=== PATIENT | female | born 1960 | race Hispanic/Latino ===

== ENCOUNTER 2024-09-27 05:50 | Day surgery (SDC) | payer MEDICAID ==
[2024-09-25 11:07] VITALS: BP 135/68; PULSE 78; RESP 17; TEMP 97.2
[2024-09-25 11:28] LABS: BASOPHILS # (AUTO) 0.04 K/uL (0.00-0.20); BASOPHILS % (AUTO) 0.8 % (0.0-5.0); EOSINOPHILS # (AUTO) 0.23 K/uL (0.00-0.70); EOSINOPHILS % (AUTO) 4.4 % (0.0-8.0); HEMATOCRIT 27.9 % (36-48); IMMATURE GRANULOCYTE ABSOLUTE 0.02 K/uL (0-1); LYMPHOCYTES % (AUTO) 18.5 % (21.0-51.0); MEAN CORPUSCULAR HEMOGLOBIN 33.5 pg (27.0-33.0); MEAN CORPUSCULAR HGB CONC 34.1 g/dL (32.0-36.0); MEAN CORPUSCULAR VOLUME 98.2 fL (79-99); MONOCYTES # (AUTO) 0.5 K/uL (0.1-1.0); NEUTROPHILS # (AUTO) 3.5 K/uL (1.8-7.7); NEUTROPHILS % (AUTO) 66.9 % (40.0-77.0); PLATELET COUNT (AUTO) 178 K/uL (130-400); RED BLOOD CELL COUNT(AUTO) 2.84 MIL/uL (4.00-5.50); RED CELL DISTRIBUTION WIDTH 14.1 % (11.0-15.5); WHITE BLOOD COUNT (AUTO) 5.2 K/uL (4.8-10.8)
[2024-09-25 11:37] LABS: CREATININE 1.5 mg/dL (0.5-1.0); POTASSIUM 4.6 mmol/L (3.5-5.1)
[2024-09-25 11:39] LABS: PROTHROMBIN TIME 10.6 SEC (9.6-11.6)
[2024-09-25 11:40] LABS: PARTIAL THROMBOPLASTIN TIME 26.8 SEC (26.3-35.5)
--- NOTE | 2024-09-26 12:34 | NUR ---
RE: LABS REPORTED CBC RESULTS TO DR BAKER, NO NEW ORDERS RECEIVED.
--- NOTE | 2024-09-26 12:43 | NUR ---
RE: JAYLEN REPORTED TO DR BAKER THAT PATIENT IS NOT ON ELIQUIS, SHE IS ON XARELTO. PER DR BAKER, HAVE PATIENT HOLD XARELTO TONIGHT. CALLED PATIENT AND INSTRUCTED HER NOT TO TAKE HER XARELTO TONIGHT, PATIENT VERBALIZED UNDERSTANDING.
[~2024-09-27] VITALS: Ht 160 cm; Wt 63.2 kg
[2024-09-27] VITALS (7 sets, daily range): BP systolic 143–180; BP diastolic 71–91; PULSE 77–99; RESP 12–19; TEMP 97–97.4
[~2024-09-27 05:50] MED LIST: AMOX500T2 PO; ATOR40TA69 PO; BUME2TAB5 PO; DILT120T PO; ESCI5TAB16 PO; FOLI1TAB85 PO; LEVE10006 PO; POTA-202 PO; RIVA15TA PO
[2024-09-27] MEDS ORDERED: HEParin 10,000 UNIT/10ML (1,000 UNIT/ML) VIAL ONE (07:20)
[2024-09-27] MEDS ORDERED: LIDOCAINE HCL 400MG/20ML VIAL ONE (07:20)
[2024-09-27] MEDS ORDERED: HEParin-NS 1,000 UNIT/500 ML 1,000 ML IV ONE (07:21)
[2024-09-27] MEDS: 0.9%NACL 1000ML 1,000 ML IV SCH (07:46)
[2024-09-27] MEDS ORDERED: MIDAZOLAM HCL 1 MG/ML 2ML VIAL ONE ×4 (08:00→09:13)
[2024-09-27] MEDS ORDERED: MEPERIDINE-PF 50 MG/ML SYG ONE ×3 (08:00→09:13)
== END 2024-09-27 11:40 | disposition home or self-care (01) ==
LOC: DAH 05:50
PROVIDERS: ATTEND Internal Medicine Cardiovascular Disease
DX: I48.92 Unspecified atrial flutter (principal); I25.10 Atherosclerotic heart disease of native coronary artery without angina pectoris; I13.0 Hypertensive heart and chronic kidney disease with heart failure and stage 1 through stage 4 chronic kidney disease, or unspecified chronic kidney disease; I50.9 Heart failure, unspecified; E78.5 Hyperlipidemia, unspecified; N18.9 Chronic kidney disease, unspecified; J44.9 Chronic obstructive pulmonary disease, unspecified; E03.9 Hypothyroidism, unspecified; G40.909 Epilepsy, unspecified, not intractable, without status epilepticus; Z79.01 Long term (current) use of anticoagulants; Z79.82 Long term (current) use of aspirin; Z79.899 Other long term (current) drug therapy
CPT/HCPCS: 80048; 85025; 85610; 85730; 36415; 93653; C1894 ×2; C1732 ×2; A4649 ×2; C1760 ×2; J3490; J7030; J1644 ×2; J2250 ×4; J2175 ×3; A4215; A4222; A4221; A4663; A4216; A4606; A4223 ×3; 99156; 99157